=== PATIENT | female | born 1955 | race Caucasian/White ===

== ENCOUNTER → 2016-03-31 | Day surgery (SDC) | payer OTHER ==
[~2016-03-31] MED LIST: BUPIVACAINE/EPINEPHRINE 0.25% PF 30 ML VIAL ONE; KETOROLAC TROMETHAMINE 30 MG/ML (IVP) VIAL IV PUSH ONE; LACTATED RINGER'S 1000 ML INJ 1,000 ML ONE; MIDAZOLAM HCL 2 MG/2 ML VIAL ONE; ONDANSETRON HCL 4 MG/2 ML VIAL IV PUSH ONE; PROPOFOL 200 MG/20 ML AMP IV ONE; SODIUM CHLOR 0.9% 250 ML BAG IV ONE; VANCOMYCIN HCL 1000 MG VIAL ONE
--- NOTE | 2016-04-03 15:02 | MP ---
cc: PRIYANKA OBANDO M.D. DATE OF SURGERY: 03/31/2016 PREOPERATIVE DIAGNOSIS Acute cholecystitis. POSTOPERATIVE DIAGNOSIS Acute cholecystitis. PROCEDURE PERFORMED Laparoscopic cholecystectomy. SURGEON Priyanka Obando ANESTHESIA General endotracheal. COMPLICATIONS None. INDICATION FOR PROCEDURE Ms. Truong is a very pleasant 61-year-old female who presented to the office yesterday with a three-day history of right upper quadrant abdominal pain. She was seen and evaluated by her primary, worked up and found to have acute cholecystitis. Specifically, she was noted to have an edematous gallbladder with gallstones and a Rossi's sign. She was referred for immediate cholecystectomy. The patient was seen in the office yesterday and offered immediate cholecystectomy today. The risks and benefits of the procedure were discussed with her in detail and she was agreeable. DETAILS OF PROCEDURE The patient was identified, brought to the operating room and placed supine on the operating table. After adequate general endotracheal anesthesia was achieved the abdomen was prepped and draped in a standard surgical fashion. The infraumbilical space was anesthetized with 0.25% Marcaine. An infraumbilical incision was made. Dissection was carried down through subcutaneous tissue to the midline fascia. The midline fascia was then incised sharply. A finger was then placed in the peritoneal cavity without difficulty. A blunt balloon trocar was inserted and the abdomen insufflated to 15 mmHg using CO2 gas. Next, two 5 mm trocars were placed in the right upper quadrant after anesthetizing the skin and subcutaneous tissue with 0.25% Marcaine. Attention was directed to the gallbladder which was identified and noted to be quite large, elongated and edematous. The gallbladder is retracted cephalad. The patient had fairly dense omental adhesions around the body and neck of the gallbladder. These were carefully taken down with blunt and electrocautery dissection. The gallbladder neck was then carefully freed up. The patient was noted to have a very redundant neck of the gallbladder that actually looped back on itself forming an S-type of pattern before it went down into the common duct. We were unable to access it initially due to its tortuous pattern. We therefore went ahead and took down the cystic artery first. Once we clearly identified the cystic artery in two planes it was clipped twice proximally, once distally and divided. This was done adjacent to the cystic node. Once the artery and the cystic node were dissected away from the neck of the gallbladder we were able to clearly see the tortuous path of the cystic duct. This was dissected out over about 2 cm so we had an adequate space for clipping it. Once the neck was clearly identified in two planes it was clipped twice proximally, once distally and then divided. The gallbladder was then dissected out of the hepatic fossa using electrocautery Bovie. The gallbladder was placed in an Endopouch bag and brought out through the infraumbilical port. We did have to enlarge the umbilical fascial incision in order to get the large gallbladder out. Once the gallbladder was added it was inspected. The gallbladder contained a few small stones, was very edematous and distended. The clips were in place on the cystic duct stump without evidence of leakage of bile. The gallbladder was sent to pathology for analysis. Next, the abdominal cavity was re-visualized. The liver bed was completely hemostatic. Clips were visualized on the cystic artery and cystic duct stump. There was no evidence of leakage of bile and no bleeding. The right upper quadrant was irrigated out with normal saline solution. The affluent was noted to be clear. 0.25% Marcaine was then injected in the operative field and all trocars removed under direct vision. The midline fascia was repaired with 0 Vicryl in a [id number] fashion. Skin was closed with 4-0 Vicryl. The patient tolerated the procedure well, was awakened and brought to Recovery in stable condition. MD DANIKA Cuenca/DANIEL /7:40 PM /2:52 PM
== END | disposition home or self-care (01) ==
LOC: ESDC 10:11
PROVIDERS: ATTEND Surgery Trauma Surgery
DX: K81.0 Acute cholecystitis (principal)
CPT/HCPCS: 00790; 47562; 88304; J1885; J2250; J2405; J3010; J3370; J7050; J7120